=== PATIENT | female | born 1930 | race Caucasian/White ===

== ENCOUNTER → 2016-09-17 | Outpatient (CLI) | payer OTHER ==
[~2016-09-17] MED LIST: ADULT LOW DOSE81 MG PO; AMILORIDE HCL-1 EACH PO; ARIMIDEX PO; ATENOLOL 25MG T25 MG PO; BENAZEPRIL HCL20 MG PO; CLARITIN5 MG PO; DICLOFENAC SOD50 M1 PO; FAMOTIDINE20 MG PO; FLONASE IH; GABAPENTIN100 MG PO; K-DUR10 ME1 PO; MIRALAX17 GM PO; OS-CAL 500+D C1 EACH PO; PAXIL 20 MG TAB20 M1 PO; PRAVASTATIN SOD40 MG PO; ZPAK PO; [UNRECOGNIZED DRUG - OTHER] PO
== END ==
LOC: RAD 04:22
DX: Z12.31 Encounter for screening mammogram for malignant neoplasm of breast (principal)